=== PATIENT | female | born 1955 | race Caucasian/White ===

== ENCOUNTER 2021-05-21 12:07 | Emergency (ER) | payer OTHER ==
[2021-05-21 12:24] VITALS: BP 166/81; PULSE 86; TEMP 98.6; BMI 32.2
[2021-05-21] MEDS ORDERED: ACETAMINOPHEN 1000 MG/100 ML BAG IVPB ONE (12:39)
[2021-05-21] MEDS ORDERED: KETOROLAC TROMETHAMINE 30 MG/1 ML VIAL IVPUSH ONE (12:39)
[2021-05-21] MEDS ORDERED: KETOROLAC TROMETHAMINE 30 MG/1 ML VIAL ONE (12:47)
[2021-05-21] MEDS ORDERED: ACETAMINOPHEN INJECTION 100 ML IVPB ONE (12:47)
[2021-05-21 13:22] LABS: EOS % 5.3 % (0-4.5); HEMATOCRIT 37.1 % (32.4-45.2); HEMOGLOBIN 12.3 GM/dL (10.7-15.3); LYMPH % 33.4 % (8-40); MCH 29.7 pg (25.7-33.7); MCHC 33.1 g/dl (32.0-36.0); MEAN CELL VOLUME 89.8 fl (80-96); MEAN PLT VOLUME 7.9 fl (7.5-11.1); MONO % 4.6 % (3.8-10.2); NEUT % 55.7 % (42.8-82.8); PLATELET COUNT 209 10^3/uL (134-434); RBC 4.14 M/mm3 (3.60-5.2); RDW 13.6 % (11.6-15.6); WHITE BLOOD COUNT 5.1 K/mm3 (4.0-10.0)
[2021-05-21 13:24] LABS: EPI CELLS >36 /uL (0-25.1); HYALINE CASTS 5 /uL (0-3.1); PH,URINE 5.5 (5.0-8.0); URINE APPEARANCE CLOUDY; URINE BACTERIA 967 /uL (0-1359); URINE BILIRUBIN NEGATIVE (NEGATIVE); URINE COLOR DK YELLOW; URINE GLUCOSE (UA) NEGATIVE (NEGATIVE); URINE KETONE TRACE (NEGATIVE); URINE LEUK ESTERASE TRACE (NEGATIVE); URINE NITRITE NEGATIVE (NEGATIVE); URINE PROTEIN NEGATIVE (NEGATIVE); URINE RBC 18 /uL (0-23.9); URINE WBC 46 /uL (0-25.8)
[2021-05-21 13:46] LABS: ALBUMIN 3.5 g/dl (3.4-5.0); CALCIUM 9.1 mg/dL (8.5-10.1)
[2021-05-21 13:47] LABS: BLOOD UREA NITROGEN 13.3 mg/dL (7-18)
[2021-05-21 13:51] LABS: TOT PROT 6.8 g/dl (6.4-8.2)
== END 2021-05-21 14:28 | disposition home or self-care (01) ==
LOC: JER 12:07
PROC: 3E0333Z Introduction of Anti-inflammatory into Peripheral Vein, Percutaneous Approach (ICD-10-PCS; principal; 2021-05-21)
PROC: 3E0333Z Introduction of Anti-inflammatory into Peripheral Vein, Percutaneous Approach (ICD-10-PCS; 2021-05-21)
DX: M54.6 Pain in thoracic spine (principal)
CPT/HCPCS: 36415; 76705-TC; 80053; 81003; 83690; 85025; 87086; 99284-25; J0131

== ENCOUNTER 2021-05-24 13:01 | Inpatient (IN) | payer OTHER ==
[2021-05-24] MEDS ORDERED: ONDANSETRON 4 MG/2 ML VIAL IVPUSH ONE (15:51)
[2021-05-24] MEDS ORDERED: SODIUM CHLORIDE 0.9% 500 ML INFUS.BAG IV ONE (15:51)
[2021-05-24] MEDS ORDERED: PIPERACILLIN/TAZOB 4.5 GM 4.5 GM in DEXTROSE 5%-WATER 100 ML IVPB ONE (15:51)
[2021-05-24] MEDS ORDERED: ONDANSETRON 4 MG/2 ML VIAL ONE (16:23)
[2021-05-24] MEDS ORDERED: PIPERACILLIN/TAZOB 4.5 GM 4.5 GM/100 ML BAG IVPB ONE (16:24)
[2021-05-24 16:37] LABS: HEMATOCRIT 35.4 % (32.4-45.2); HEMOGLOBIN 12.1 GM/dL (10.7-15.3); MCH 30.4 pg (25.7-33.7); MEAN CELL VOLUME 89.3 fl (80-96); RBC 3.97 M/mm3 (3.60-5.2); RDW 13.5 % (11.6-15.6)
[2021-05-24 16:41] LABS: INR 1.05 (0.83-1.09); PROTHROMBIN TIME (PATIENT) 12.1 SEC (9.7-13.0)
[2021-05-24 16:44] LABS: ACTIVATED PTT 18.5 SECONDS (25.2-36.5)
[2021-05-24 16:53] LABS: CHLORIDE 104 mmol/L (98-107); SODIUM 140 mmol/L (136-145)
[2021-05-24 16:56] LABS: ALBUMIN 3.5 g/dl (3.4-5.0); BLOOD UREA NITROGEN 9.3 mg/dL (7-18); CALCIUM 9.5 mg/dL (8.5-10.1)
[2021-05-24 16:57] LABS: ANION GAP 4 MMOL/L (8-16); CO2 32 mmol/L (21-32); GLUCOSE,RANDOM 140 mg/dL (74-106); LIPASE 67 U/L (73-393)
[2021-05-24 16:59] LABS: CREATININE 0.8 mg/dL (0.55-1.3); SGOT/AST 20 U/L (15-37); SGPT/ALT 27 U/L (13-61)
[2021-05-24 17:01] LABS: BILIRUBIN,TOTAL 0.5 mg/dL (0.2-1)
[2021-05-24 17:02] LABS: ALK PHOS 98 U/L (45-117)
[2021-05-24 17:21] LABS: URINE APPEARANCE CLEAR; URINE BILIRUBIN NEGATIVE (NEGATIVE); URINE COLOR YELLOW; URINE GLUCOSE (UA) NEGATIVE (NEGATIVE); URINE KETONE NEGATIVE (NEGATIVE); URINE LEUK ESTERASE NEGATIVE (NEGATIVE); URINE NITRITE NEGATIVE (NEGATIVE); URINE PROTEIN NEGATIVE (NEGATIVE); URINE UROBILINOGEN 0.2 mg/dL (0.2-1.0)
[2021-05-24 19:00] LABS: PLATELET ESTIMATE NORMAL
[2021-05-24 19:01] LABS: MEAN PLT VOLUME 8.9 fl (7.5-11.1); PLATELET COUNT 283 10^3/uL (134-434); WHITE BLOOD COUNT 15.3 K/mm3 (4.0-10.0)
[2021-05-24] MEDS: SODIUM CHLORIDE 1,000 ML IV SCH (19:29)
[2021-05-24] MEDS ORDERED: CIPROFLOXACIN 400 MG/D5W 400 MG/200 ML IVPB IVPB SCH (22:00)
[2021-05-24] MEDS: ROSUVASTATIN CA 20 MG TABLET PO SCH (22:44)
[2021-05-24] MEDS: CIPROFLOXACIN 400 MG/D5W 400 MG/200 ML IVPB IVPB SCH (22:44)
[2021-05-25 08:41] LABS: HEMATOCRIT 32.7 % (32.4-45.2); HEMOGLOBIN 10.6 GM/dL (10.7-15.3); MCH 29.3 pg (25.7-33.7); MCHC 32.3 g/dl (32.0-36.0); MEAN CELL VOLUME 90.7 fl (80-96); MEAN PLT VOLUME 7.8 fl (7.5-11.1); PLATELET COUNT 208 10^3/uL (134-434); RBC 3.61 M/mm3 (3.60-5.2); RDW 13.3 % (11.6-15.6); WHITE BLOOD COUNT 6.8 K/mm3 (4.0-10.0)
[2021-05-25] MEDS: metFORMIN HCL 500 MG TABLET (FP) PO SCH ×2 (09:37→17:11)
[2021-05-25] MEDS: metoPROLOL SUCCINATE 25 MG TAB.SR.24H (FP) PO SCH (09:45)
[2021-05-25] MEDS: PANTOPRAZOLE 40 MG TABLET PO SCH (09:45)
[2021-05-25] MEDS: CITALOPRAM HYDROBROMIDE 10 MG TABLET PO SCH (10:28)
[2021-05-25] MEDS: CIPROFLOXACIN 400 MG/D5W 400 MG/200 ML IVPB IVPB SCH (10:28)
[2021-05-25] MEDS ORDERED: DEXTROSE 5%-WATER - 50 ML IVPB ONE (15:39)
[2021-05-25] MEDS ORDERED: cefTRIAXone SODIUM 1 GM VIAL ONE (15:39)
[2021-05-25] MEDS: CEFTRIAXONE 1 GM in DEXTROSE 5%-WATER - 50 ML IVPB SCH (15:44)
[2021-05-25 16:07] VITALS: BMI 32.4
[2021-05-25] MEDS: SODIUM CHLORIDE 1,000 ML IV SCH (18:58)
[2021-05-25] MEDS ORDERED: ONDANSETRON 4 MG TABLET PO PRN (21:00)
[2021-05-25] MEDS: ROSUVASTATIN CA 20 MG TABLET PO SCH (22:09)
[2021-05-26] MEDS ORDERED: ACETAMINOPHEN 1000 MG/100 ML BAG IVPB ONE (05:07)
[2021-05-26] MEDS: metFORMIN HCL 500 MG TABLET (FP) PO SCH ×2 (06:01→17:10)
[2021-05-26 08:26] LABS: BASO % 0.5 % (0-2.0); EOS % 3.2 % (0-4.5); HEMATOCRIT 32.3 % (32.4-45.2); HEMOGLOBIN 10.6 GM/dL (10.7-15.3); LYMPH % 28.5 % (8-40); MCH 29.6 pg (25.7-33.7); MCHC 32.8 g/dl (32.0-36.0); MEAN CELL VOLUME 90.2 fl (80-96); MONO % 6.2 % (3.8-10.2); NEUT % 61.6 % (42.8-82.8); PLATELET COUNT 214 10^3/uL (134-434); RBC 3.58 M/mm3 (3.60-5.2); RDW 13.5 % (11.6-15.6); WHITE BLOOD COUNT 6.1 K/mm3 (4.0-10.0)
[2021-05-26 08:36] LABS: CALCIUM 8.1 mg/dL (8.5-10.1)
[2021-05-26 08:37] LABS: BLOOD UREA NITROGEN 9.1 mg/dL (7-18)
[2021-05-26 08:39] LABS: CREATININE 0.7 mg/dL (0.55-1.3)
[2021-05-26] MEDS ORDERED: cefTRIAXone SODIUM 1 GM VIAL ONE (09:16)
[2021-05-26] MEDS ORDERED: DEXTROSE 5%-WATER - 50 ML IVPB ONE (09:16)
[2021-05-26] MEDS: PANTOPRAZOLE 40 MG TABLET PO SCH (09:22)
[2021-05-26] MEDS: CITALOPRAM HYDROBROMIDE 10 MG TABLET PO SCH (09:22)
[2021-05-26] MEDS: metoPROLOL SUCCINATE 25 MG TAB.SR.24H (FP) PO SCH (09:24)
[2021-05-26] MEDS: CEFTRIAXONE 1 GM in DEXTROSE 5%-WATER - 50 ML IVPB SCH (12:06)
[2021-05-26] MEDS: ACETAMINOPHEN 325 MG TABLET (FP) PO PRN (17:26)
[2021-05-26] MEDS: valACYclovir HCL 500 MG TABLET (FP) PO SCH (22:33)
[2021-05-26] MEDS: ROSUVASTATIN CA 20 MG TABLET PO SCH (22:33)
[2021-05-26] MEDS: SODIUM CHLORIDE 1,000 ML IV SCH (22:34)
[2021-05-27] MEDS: valACYclovir HCL 500 MG TABLET (FP) PO SCH ×2 (06:02→12:59)
[2021-05-27] MEDS: metFORMIN HCL 500 MG TABLET (FP) PO SCH (06:02)
[2021-05-27 08:13] LABS: BASO % 1.2 % (0-2.0); EOS % 5.2 % (0-4.5); HEMATOCRIT 35.9 % (32.4-45.2); HEMOGLOBIN 11.9 GM/dL (10.7-15.3); LYMPH % 27.4 % (8-40); MCH 29.6 pg (25.7-33.7); MEAN CELL VOLUME 89.6 fl (80-96); MEAN PLT VOLUME 8.1 fl (7.5-11.1); MONO % 5.4 % (3.8-10.2); NEUT % 60.8 % (42.8-82.8); PLATELET COUNT 247 10^3/uL (134-434); RBC 4.01 M/mm3 (3.60-5.2); RDW 13.8 % (11.6-15.6); WHITE BLOOD COUNT 6.1 K/mm3 (4.0-10.0)
[2021-05-27] MEDS ORDERED: cefTRIAXone SODIUM 1 GM VIAL ONE (09:16)
[2021-05-27] MEDS ORDERED: DEXTROSE 5%-WATER - 50 ML IVPB ONE (09:16)
[2021-05-27] MEDS: CEFTRIAXONE 1 GM in DEXTROSE 5%-WATER - 50 ML IVPB SCH (09:21)
[2021-05-27] MEDS: metoPROLOL SUCCINATE 25 MG TAB.SR.24H (FP) PO SCH (09:21)
[2021-05-27] MEDS: PANTOPRAZOLE 40 MG TABLET PO SCH (09:22)
[2021-05-27] MEDS: CITALOPRAM HYDROBROMIDE 10 MG TABLET PO SCH (09:22)
[2021-05-27] MEDS: ACETAMINOPHEN 325 MG TABLET (FP) PO PRN (12:56)
[2021-05-27 14:42] VITALS: BP 143/78; PULSE 65; TEMP 97.3
== END 2021-05-27 16:56 | disposition home or self-care (01) | DRG 392 ==
LOC: JER 13:01 → JERBED 14:30 → J7W 05-25 01:39
PROVIDERS: ADMIT Family Medicine; ATTEND Family Medicine
DX: K57.92 Diverticulitis of intestine, part unspecified, without perforation or abscess without bleeding (principal); K62.5 Hemorrhage of anus and rectum; E11.9 Type 2 diabetes mellitus without complications; I10 Essential (primary) hypertension; B02.9 Zoster without complications; K52.9 Noninfective gastroenteritis and colitis, unspecified; K21.9 Gastro-esophageal reflux disease without esophagitis; D72.829 Elevated white blood cell count, unspecified
CPT/HCPCS: 36415; 74174-TC; 74177-TC; 80048; 80053; 81003; 82550; 82962; 83605; 83690; 83735; 84484; 85025; 85027; 85610; 85730; 86140; 87086; 93005; 93010; 99285-25; C9803; J0131; Q9967; U0003; U0005